=== PATIENT | female | born 1935 | race Caucasian/White ===

== ENCOUNTER 2017-04-22 11:05 | Day surgery (SDC) | payer MEDICARE ==
--- NOTE | ~2017-04-22 | EGD ---
EGD REPORT [facility] [address] [id number] NAME: ODALIS SCHWARTZ : 37 STATUS : REG [facility]#: [id number] AGE: 81 ADM/REG DATE : 04/22/17 MR#: [id number] REPORT SERV DATE: 04/22/17 DICTATED BY: BRITTANY CHENEY DATE: 04/22/17 REPORT STATUS : Draft TRANSCRIBED BY: [facility] DATE: 04/22/17 Endoscopy Center Patient Name: Odalis Schwartz Date of : 1935 Attending MD: BRITTANY CHENEY MD Procedure Date No Time: 04/22/2017 Procedure: Upper GI endoscopy Indications: Dyspepsia, Early satiety, Nausea with vomiting, Weight loss Referring MD: VALENTINA ALFONSO Medicines: See the Anesthesia note for documentation of the administered medications Complications: No immediate complications. Procedure: Pre-Anesthesia Assessment: - ASA Grade Assessment: II - A patient with mild systemic disease. After obtaining informed consent, the endoscope was passed under direct vision. Throughout the procedure, the patient's blood pressure, pulse, and oxygen saturations were monitored continuously. The GIF [id number] was introduced through the mouth, and advanced to the second part of duodenum. The upper GI endoscopy was accomplished without difficulty. The patient tolerated the procedure well. Findings: The 2nd part of the duodenum was normal. Biopsies were taken with a cold forceps for histology. Nodular duodenal bulb with oozing due to insufflation Nodular mucosa in antrum, Biopsies were taken with a cold forceps for histology. A small hiatus hernia was present. Nodular mucosa in body with oozing from focal area due to insufflation, Coagulation for hemostasis using argon plasma was successful. Impression: - Normal 2nd part of the duodenum. Biopsied. - Nodular duodenal bulb with oozing due to insufflation - Nodular mucosa in antrum - Hiatus hernia. - Nodular mucosa in body with oozing from focal area due to insufflation Recommendation: - Patient has a contact number available for emergencies. The signs and symptoms of potential delayed complications were discussed with the patient. Return to EGD REPORT [address] [place]. [address] NAME: ODALIS SCHWARTZ : 37 STATUS : [place] [facility] [place]#: [id number] AGE: 81 ADM/REG DATE : 04/22/17 MR#: [id number] REPORT SERV DATE: 04/22/17 DICTATED BY: BRITTANY CHENEY DATE: 04/22/17 REPORT STATUS : Draft TRANSCRIBED BY: [employer] DATE: 04/22/17 normal activities tomorrow. Written discharge instructions were provided to the patient. - Clear liquid diet today. - Continue present medications. - FOR YOUR BIOPSY RESULTS: Please go to [email or web address] and register to receive your results via the portal. Your biopsy results will be posted there in about 7 to 10 days. IF you do not see result in 10 days, call office. - Avoid NSAIDS, BC powder, Goody's Powder - Call office on Tuesday for work in appt Tuesday Will check CBC today If black stools or red blood per rectum, to ER Procedure Code(s): --- Professional --- 86221, 59, Esophagogastroduodenoscopy, flexible, transoral; with control of bleeding, any method 25920, Esophagogastroduodenoscopy, flexible, transoral; with biopsy, single or multiple Diagnosis Code(s): --- Professional --- K44.9, Diaphragmatic hernia without obstruction or gangrene K30, Functional dyspepsia R68.81, Early satiety R11.2, Nausea with vomiting, unspecified R63.4, Abnormal weight loss CPT copyright 2013 [employer]. All rights reserved. The codes documented in this report are preliminary and upon remote medical coder review may be revised to meet current compliance requirements. Brittany Cheney MD BRITTANY CHENEY MD 04/22/2017 12:27 PM This report has been signed electronically. Number of Addenda: 0 Note Initiated On: 04/22/2017 12:00 PM Scope Withdrawal Time 0 hours 0 minutes 0 seconds [id number] [id number]
[~2017-04-22 11:05] MED LIST: BENICAR40 PO; LOP25 PO; MULTIPLE VITS PO; SPIRO25 PO
[2017-04-22 13:46] LABS: BASOPHILS 0.2 %; BASOPHILS ABSOLUTE 0.01 10/3/uL (0.0-0.16); EOSINOPHILS 2.4 %; EOSINOPHILS ABSOLUTE 0.13 10/3/uL (0.0-0.53); HEMATOCRIT 38.2 % (36.0-48.0); HEMOGLOBIN 12.7 g/dL (12.0-16.0); IMMATURE GRANULOCYTES 0.2 %; IMMATURE GRANULOCYTES ABSOLUTE 0.01 10/3/uL (0.0-0.11); LYMPHOCYTES ABSOLUTE 1.64 10/3/uL (0.67-4.30); MANUAL DIFF NO %; MEAN CORPUS HGB CONC 33.2 g/dL (32.0-36.0); MEAN CORPUSCULAR HEMOGLOB 31.4 pg (26.0-34.0); MEAN CORPUSCULAR VOLUME 94.3 fL (80-100); MEAN PLATELET VOLUME 11.3 fL (9.2-13.0); MONOCYTES 6.8 %; MONOCYTES ABSOLUTE 0.37 10/3/uL (0.21-1.20); NEUTROPHILS 60.4 %; PLATELET COUNT 170 10/3/uL (150-400); RBC DISTRIBUTION WIDTH 13.2 % (12.0-16.0); RED CELL COUNT 4.05 10/6/uL (4.0-5.6); WHITE BLOOD CELLS 5.5 10/3/uL (4.5-10.5)
== END 2017-04-22 23:59 | disposition home or self-care (01) ==
LOC: DMU 11:05
PROVIDERS: Internal Medicine Gastroenterology
PROC: 0DB68ZX Excision of Stomach, Via Natural or Artificial Opening Endoscopic, Diagnostic (ICD-10-PCS; 2017-04-22)
PROC: 0W3P8ZZ Control Bleeding in Gastrointestinal Tract, Via Natural or Artificial Opening Endoscopic (ICD-10-PCS; principal; 2017-04-22 13:00)
PROC: 0DB98ZX Excision of Duodenum, Via Natural or Artificial Opening Endoscopic, Diagnostic (ICD-10-PCS; 2017-04-22 13:00)
DX: K30 Functional dyspepsia (principal); K44.9 Diaphragmatic hernia without obstruction or gangrene; R68.81 Early satiety; M19.90 Unspecified osteoarthritis, unspecified site; I10 Essential (primary) hypertension; Z88.2 Allergy status to sulfonamides; Z88.5 Allergy status to narcotic agent; Z88.7 Allergy status to serum and vaccine; Z90.49 Acquired absence of other specified parts of digestive tract; Z90.710 Acquired absence of both cervix and uterus
CPT/HCPCS: 85025; 88305; 88342